=== PATIENT | male | born 1930 | race Two or more races ===

== ENCOUNTER 2017-09-11 11:00 | Outpatient (CLI) | payer OTHER | END 2017-09-11 11:09 | disposition home or self-care (01) | LOC: RAD 501 11:00 | DX: M25.551 Pain in right hip (principal); M25.561 Pain in right knee ==

== ENCOUNTER → 2018-01-02 07:10 | Outpatient (CLI) | payer OTHER | END | disposition home or self-care (01) | LOC: RAD 07:10 | DX: D64.89 Other specified anemias (principal); E88.89 Other specified metabolic disorders; D68.8 Other specified coagulation defects; N39.0 Urinary tract infection, site not specified; B95.62 Methicillin resistant Staphylococcus aureus infection as the cause of diseases classified elsewhere; Z76.89 Persons encountering health services in other specified circumstances; I49.8 Other specified cardiac arrhythmias ==

== ENCOUNTER 2018-01-03 12:41 | Outpatient (CLI) | payer OTHER | END 2018-01-03 13:05 | disposition home or self-care (01) | LOC: RAD 501 12:41 | DX: M16.11 Unilateral primary osteoarthritis, right hip (principal) ==

== ENCOUNTER 2018-01-04 13:13 | Inpatient (IN) | payer OTHER ==
[~2018-01-04] VITALS: Ht 167.6 cm; Wt 72.6 kg
[2018-01-11] MEDS ORDERED: XARELTO10 MG PO (09:23)
[2018-01-11] MEDS ORDERED: INTEGRA F CAPS1 EACH PO (09:23)
== END 2018-01-11 10:31 | disposition home health service (06) | DRG 470 ==
LOC: SURG 01-08 11:08 → O/R 01-08 11:08 → SURG 01-08 18:49
PROVIDERS: Orthopaedic Surgery
PROC: 0MBN0ZZ Excision of Right Knee Bursa and Ligament, Open Approach (ICD-10-PCS; 2018-01-08)
PROC: 0SR90JZ Replacement of Right Hip Joint with Synthetic Substitute, Open Approach (ICD-10-PCS; principal; 2018-01-08 12:15)
DX: M16.11 Unilateral primary osteoarthritis, right hip (principal); D62 Acute posthemorrhagic anemia; M70.61 Trochanteric bursitis, right hip

== ENCOUNTER 2018-01-18 10:55 | Outpatient (CLI) | payer OTHER ==
[~2018-01-18 10:55] MED LIST: INTEGRA F CAPS1 EACH PO; XARELTO10 MG PO
== END 2018-01-18 11:13 | disposition home or self-care (01) ==
LOC: RAD 10:55
DX: Z96.641 Presence of right artificial hip joint (principal)

== ENCOUNTER 2018-02-13 14:53 | Outpatient (CLI) | payer OTHER | END 2018-02-13 15:23 | disposition home or self-care (01) | LOC: RAD 14:53 | DX: Z96.641 Presence of right artificial hip joint (principal) ==